=== PATIENT | male | born 1980 | race Caucasian/White ===

== ENCOUNTER → 2018-11-16 11:32 | Outpatient (CLI) | payer BC, SELFPAY ==
[2018-11-16 08:23] VITALS: BMI 42.7
[2018-11-16 12:45] LABS: Absolute Lymphocyte Count 1.17 X10^3/ul (0.83-4.51); Absolute Neutrophil Count 3.5 X10^3/uL (2.0-7.7); Basophil# 0.01 X10^3/uL; Basophil% 0.2 % (0-1); Eosinophil# 0.08 X10^3/uL; Eosinophils% 1.5 % (0-5); Hematocrit 44.2 % (40-54); Hemoglobin 14.5 g/dl (13.0-16.5); Lymphocyte # 1.17 X10^3/ul (4.0); Lymphocyte % 21.8 % (19-41); Mean Corp Hgb Conc 32.8 g/gl (32-36); Mean Corpuscular Hgb 27.6 pg (27.0-32.0); Mean Corpuscular Volume 84.2 fL (80-94); Mean Platelet Vol. 10.3 fl (6.2-12.0); Monocyte# 0.59 X10^3/uL; Neutrophil # 3.51 X10^3/uL (2.7-7.7); Neutrophil % 65.3 % (47-70); POSITIVE COUNT NO; POSITIVE DIFFERENTIAL NO; POSITIVE MORPHOLOGY NO; Platelet Count 360 K/mm3 (150-450); RBC Distribution Width CV 14.3 % (11.6-14.6); Red Blood Count 5.25 M/mm3 (4.6-6.2); White Blood Count 5.4 K/mm3 (4.4-11.0)
[2018-11-16 12:46] LABS: Anion Gap 4 (5-15); BUN 14 mg/dL (7-18); BUN/Creat Ratio 14.8 RATIO (10-20); Calcium,Total 8.5 mg/dL (8.5-10.1); Chloride 107 mmol/L (98-107); Creatinine, Serum 0.94 mg/dL (0.70-1.30); EST Glomerular Filtration Rate 96 mL/min (>60); Est Glom Filt Rate - Afr Amer 116 mL/min (>60); Glucose 107 mg/dL (74-106); Magnesium 2.1 mg/dL (1.6-2.6); Potassium 3.7 mmol/L (3.5-5.1); Sodium Level 140 mmol/L (136-145); Thyroid Stim Hormone (TSH) 1.74 uIU/mL (0.358-3.74)
== END ==
PROVIDERS: Family Provider Family Medicine; PCP Family Medicine; Referring Provider Internal Medicine Cardiovascular Disease; Visit Provider Internal Medicine Cardiovascular Disease
DX: I42.8 Other cardiomyopathies (principal)
CPT/HCPCS: 36415; 80048; 83735; 84443; 85025

== ENCOUNTER → 2018-12-21 08:40 | Outpatient (CLI) | payer BC, SELFPAY ==
[2018-11-16 08:23] VITALS: BMI 42.7
--- NOTE | 2018-12-21 08:42 | ECHOCS_ITS ---
Version 2 Reason For Study: SOB Procedure This was a 2D Doppler, Color Flow transthoracic echocardiogram. Technically difficult apical views due to subcutaneous AICD lead placement. Patient unable to tolerate probe pressure. Exam performed in department. Left Ventricle Mildly dilated left ventricle. The estimated ejection fraction is 30 %. There is severe global hypokinesis of the left ventricle. Right Ventricle Normal RV size. Normal systolic function. Atria Normal left atrium. Normal right atrium. Mitral Valve Normal mitral valve. Tricuspid Valve Normal tricuspid valve. Aortic Valve Normal aortic valve. Great Vessels Normal aortic root. Pericardium/Pleural No pericardial effusion. Medication 22 gauge I.V. with prn adaptor inserted into right arm. Diluted definity 4ml given slow IV push to enhance endocardial definition. MMode/2D Measurements & Calculations LVIDd: 6.0 cm IVSd: 0.84 cm Ao root diam: 3.3 cm LVIDs: 4.2 cm LVPWd: 1.1 cm FS: 29.6 % LA dimension(2D): 4.1 cm Doppler Measurements & Calculations MV E max pete: 69.6 cm/sec Lat Peak E' Pete: 6.0 cm/sec Med Peak E' Pete: 6.9 cm/sec MV A max pete: 60.3 cm/sec E/E' lat: 11.6 E/E' med: 10.2 MV E/A: 1.2 Ao V2 max: 141.8 cm/sec LV V1 max: 107.3 cm/sec PA V2 max: 122.1 cm/sec Ao max P.0 mmHg LV V1 max P.6 mmHg Interpretation Summary Mildly dilated left ventricle. The estimated ejection fraction is 30 %. There is severe global hypokinesis of the left ventricle. Contrast injection was performed. Compared to previous study, the left ventricular systolic function is the same.. Ordering Physician: Hosea Sanchez Referring Physician: Isac Gill Performed By: Kourtney Cohen RDCS
== END ==
PROVIDERS: Family Provider Family Medicine; PCP Family Medicine; Referring Provider Internal Medicine Cardiovascular Disease; Visit Provider Internal Medicine Cardiovascular Disease
DX: I42.8 Other cardiomyopathies (principal)
CPT/HCPCS: 93306; Q9957; A4216; C8929

== ENCOUNTER → 2019-06-10 | Outpatient (CLI) | payer BC, SELFPAY ==
[2019-05-17 08:06] VITALS: BMI 45.4
== END | disposition home or self-care (01) ==
LOC: SL 20:07
PROVIDERS: Family Provider Family Medicine; PCP Family Medicine; Referring Provider Nurse Practitioner Family; Visit Provider Nurse Practitioner Family
DX: G47.10 Hypersomnia, unspecified (principal)
CPT/HCPCS: 95810

== ENCOUNTER 2019-06-21 09:30 | Outpatient (RCR) | payer BC, SELFPAY ==
[2019-05-17 08:06] VITALS: BMI 45.4
== END 2019-06-22 23:59 ==
LOC: NS 09:30
PROVIDERS: Family Provider Family Medicine; PCP Family Medicine; Visit Provider Nurse Practitioner Family
DX: E66.01 Morbid (severe) obesity due to excess calories (principal); Z68.42 Body mass index [BMI] 45.0-49.9, adult; I42.8 Other cardiomyopathies; I50.9 Heart failure, unspecified; Z71.3 Dietary counseling and surveillance
CPT/HCPCS: 97802; 97803

== ENCOUNTER 2019-07-05 09:10 | Outpatient (RCR) | payer BC, SELFPAY ==
[2019-05-17 08:06] VITALS: BMI 45.4
[2019-06-25 07:42] VITALS: BMI 45.4
== END 2019-07-22 23:59 ==
LOC: NS 09:10
PROVIDERS: Family Provider Family Medicine; PCP Family Medicine; Visit Provider Nurse Practitioner Family
DX: E66.01 Morbid (severe) obesity due to excess calories (principal); Z68.42 Body mass index [BMI] 45.0-49.9, adult; I42.8 Other cardiomyopathies; I50.9 Heart failure, unspecified; Z71.3 Dietary counseling and surveillance
CPT/HCPCS: 97803

== ENCOUNTER → 2019-07-24 20:12 | Outpatient (CLI) | payer BC, SELFPAY ==
[2019-06-25 07:42] VITALS: BMI 45.4
== END ==
LOC: SL 20:12
PROVIDERS: Family Provider Family Medicine; PCP Family Medicine; Visit Provider Nurse Practitioner Acute Care
DX: G47.33 Obstructive sleep apnea (adult) (pediatric) (principal)
CPT/HCPCS: 95811

== ENCOUNTER 2019-08-09 09:00 | Outpatient (RCR) | payer BC, SELFPAY ==
[2019-06-25 07:42] VITALS: BMI 45.4
== END 2019-08-22 23:59 ==
LOC: NS 09:00
PROVIDERS: Family Provider Family Medicine; PCP Family Medicine; Visit Provider Nurse Practitioner Family
DX: E66.01 Morbid (severe) obesity due to excess calories (principal); Z68.42 Body mass index [BMI] 45.0-49.9, adult; I42.8 Other cardiomyopathies; I50.9 Heart failure, unspecified; Z71.3 Dietary counseling and surveillance
CPT/HCPCS: 97803

== ENCOUNTER → 2019-08-23 09:18 | Outpatient (CLI) | payer BC, SELFPAY ==
[2019-06-25 07:42] VITALS: BMI 45.4
== END ==
PROVIDERS: Family Provider Family Medicine; PCP Family Medicine; Referring Provider Nurse Practitioner Acute Care; Visit Provider Nurse Practitioner Acute Care
DX: G47.33 Obstructive sleep apnea (adult) (pediatric) (principal)

== ENCOUNTER 2019-08-30 08:37 | Outpatient (RCR) | payer BC, SELFPAY ==
[2019-08-07 09:41] VITALS: BMI 43.3
== END 2019-08-30 23:59 | disposition home or self-care (01) ==
LOC: NS 08:37
PROVIDERS: Family Provider Family Medicine; PCP Family Medicine; Visit Provider Nurse Practitioner Family
DX: Z71.3 Dietary counseling and surveillance (principal); E66.01 Morbid (severe) obesity due to excess calories; Z68.42 Body mass index [BMI] 45.0-49.9, adult; I42.9 Cardiomyopathy, unspecified; I50.9 Heart failure, unspecified
CPT/HCPCS: 97803

== ENCOUNTER → 2020-01-15 12:46 | Outpatient (CLI) | payer BC, SELFPAY ==
[2019-12-26 15:56] VITALS: BMI 45.1
--- NOTE | 2020-01-15 12:50 | ECHOCS_ITS ---
Reason For Study: DYSPNEA Procedure This was a 2D Doppler, Color Flow transthoracic echocardiogram. The study was technically difficult. Contrast injection was performed. Exam performed in department. Left Ventricle Normal LV size. The estimated ejection fraction is 45 %. No regional wall motion abnormalities noted. There is mild to moderate global hypokinesis of the left ventricle. Right Ventricle Normal RV size. Normal systolic function. Tricuspid Valve Normal tricuspid valve. Pulmonic Valve The pulmonic valve is not well visualized. Great Vessels Normal aortic root. Pericardium/Pleural No pericardial effusion. Medication 22 gauge I.V. with prn adaptor inserted into right arm. Diluted definity 6.0ml given slow IV push to enhance endocardial definition. MMode/2D Measurements & Calculations LVIDd: 5.9 cm IVSd: 1.1 cm Ao root diam: 3.0 cm LVIDs: 4.2 cm LVPWd: 1.1 cm RVDd: 3.5 cm FS: 28.8 % LAV(MOD-sp4): 48.1 ml EDV(MOD-sp4): 182.7 ml EDV(MOD-sp2): 150.5 ml ESV(MOD-sp4): 100.3 ml EF(MOD-sp2): 53.1 % EF(MOD-sp4): 45.1 % SV(MOD-sp4): 82.4 ml SV(MOD-sp2): 79.8 ml LA A4 area: 18.0 cm2 LA dimension(2D): 4.8 cm RA A4 area: 13.8 cm2 Time Measurements MV dec time: 0.29 sec Doppler Measurements & Calculations MV E max pete: 74.4 cm/sec Lat Peak E' Pete: 6.6 cm/sec Med Peak E' Pete: 7.9 cm/sec MV A max pete: 59.0 cm/sec E/E' lat: 11.2 E/E' med: 9.5 MV E/A: 1.3 Ao V2 max: 122.6 cm/sec LV V1 max: 101.1 cm/sec PA V2 max: 137.5 cm/sec Ao max P.0 mmHg LV V1 max P.1 mmHg Interpretation Summary Normal LV size. The estimated ejection fraction is 45 %. No regional wall motion abnormalities noted. There is mild to moderate global hypokinesis of the left ventricle. Contrast injection was performed. Ordering Physician: Hosea Sanchez Referring Physician: GENARO CULLEN Performed By: Gricelda Pyle, RDCS, RVT
== END ==
PROVIDERS: PCP Family Medicine; Referring Provider Internal Medicine Cardiovascular Disease; Visit Provider Internal Medicine Cardiovascular Disease
DX: I42.8 Other cardiomyopathies (principal)
CPT/HCPCS: 93306; Q9957; A4216; C8929

== ENCOUNTER → 2023-05-11 | Outpatient (CLI) | payer BC, SELFPAY ==
--- NOTE | 2023-05-11 09:32 | ECHOCS_ITS ---
Reason For Study: Cardiomyopathy Procedure This was a 2D Doppler, Color Flow transthoracic echocardiogram. The study was technically difficult. Contrast injection was performed. Exam performed in department. Left Ventricle Normal LV size. The estimated ejection fraction is 45 %. Stage 2 diastolic dysfunction. There is mild global hypokinesis of the left ventricle. Right Ventricle Normal RV size. Normal systolic function. Atria Normal left atrium. Normal right atrium. Mitral Valve Normal mitral valve. Tricuspid Valve Normal tricuspid valve. Aortic Valve Trisinus/trileaflet aortic valve. Pulmonic Valve Normal pulmonic valve. Great Vessels Normal aortic root. The pulmonary artery is normal size. Normal inferior vena cava. Pericardium/Pleural No pericardial effusion. Medication 20 gauge I.V. with prn adaptor inserted into right arm. Diluted definity 1.75ml given slow IV push to enhance endocardial definition. MMode/2D Measurements & Calculations LVIDd: 5.6 cm IVSd: 1.0 cm Ao root diam: 3.1 cm LVIDs: 4.5 cm LVPWd: 1.1 cm LA dimension: 4.4 cm RVDd: 3.5 cm FS: 19.5 % LAV(MOD-bp): 34.3 ml LVAd ap4: 41.0 cm2 SV(MOD-sp4): 55.1 ml LAV(MOD-bp) Indexed: 15.3 ml/m2 LVLd ap4: 8.9 cm LAV(MOD-sp2): 30.7 ml EDV(MOD-sp4): 156.0 ml LAV(MOD-sp4): 33.7 ml EDV(sp4-el): 160.1 ml LVAs ap4: 30.6 cm2 LVLs ap4: 7.7 cm ESV(MOD-sp4): 100.9 ml ESV(sp4-el): 102.4 ml EF(MOD-sp4): 35.3 % EF(sp4-el): 36.1 % SV(sp4-el): 57.7 ml LA A4 area: 14.7 cm2 RA A4 area: 11.0 cm2 Time Measurements MV dec time: 0.19 sec Doppler Measurements & Calculations MV E max pete: 100.8 cm/sec Lat Peak E' Pete: 9.6 cm/sec Med Peak E' Pete: 12.0 cm/sec MV A max pete: 71.5 cm/sec E/E' lat: 10.5 E/E' med: 8.4 MV E/A: 1.4 MV V2 max: 102.0 cm/sec MV P1/2t max pete: 103.3 cm/sec Ao V2 max: 140.2 cm/sec MV max P.2 mmHg MV P1/2t: 63.1 msec Ao max P.9 mmHg MV V2 mean: 58.4 cm/sec Ao V2 mean: 101.0 cm/sec MV mean P.6 mmHg MV dec slope: 479.5 cm/sec2 Ao mean P.6 mmHg MV V2 VTI: 30.2 cm MVA(P1/2t): 3.5 cm2 Ao V2 VTI: 28.4 cm AV (velocity ratio): 0.85 LV V1 max: 122.9 cm/sec PA V2 max: 122.3 cm/sec LV V1 max P.0 mmHg PA V2 mean: 83.2 cm/sec LV V1 mean P.5 mmHg LV V1 mean: 88.1 cm/sec LV V1 VTI: 24.1 cm ECHO/Echo Complete W/ Contrast Interpretation Summary Normal LV size. The estimated ejection fraction is 45 %. There is mild global hypokinesis of the left ventricle. Stage 2 diastolic dysfunction. Contrast injection was performed. Ordering Physician: Jose Antonio Riley Referring Physician: Isac Gill Performed By: Db Rodgers RCS
[2023-05-11 11:18] LABS: Anion Gap 6 (5-15); BUN 18 mg/dL (7-18); BUN/Creat Ratio 19.9 RATIO (10-20); Chloride 106 mmol/L (98-107); EST Glomerular Filtration Rate 98 mL/min (>60); Est Glom Filt Rate - Afr Amer 119 mL/min (>60); Glucose 148 mg/dL (74-106); Magnesium 2.5 mg/dL (1.6-2.6); Potassium 3.6 mmol/L (3.5-5.1); Sodium Level 141 mmol/L (136-145)
== END | disposition home or self-care (01) ==
PROVIDERS: PCP Family Medicine; Referring Provider Nurse Practitioner Family; Visit Provider Nurse Practitioner Family
DX: I42.8 Other cardiomyopathies (principal); Z95.810 Presence of automatic (implantable) cardiac defibrillator
CPT/HCPCS: 36415; 80048; 83735; 93306; Q9957; A4216; C8929

== ENCOUNTER → 2025-08-14 | Outpatient (CLI) | payer BC, SELFPAY ==
[2025-08-14 14:40] LABS: Anion Gap 13 (5-15); BUN 19 mg/dL (4-19); BUN/Creat Ratio 28.4 RATIO (10-20); Calcium,Total 9.1 mg/dL (7.6-11.0); Carbon Dioxide 23.4 mmol/L (21.0-32.0); Chloride 104 mmol/L (98-108); Glucose 272 mg/dL (70-99); Magnesium 2.3 mg/dL (1.5-2.2); Potassium 3.9 mmol/L (3.3-5.1)
== END | disposition home or self-care (01) ==
PROVIDERS: PCP Family Medicine; Referring Provider Internal Medicine Cardiovascular Disease; Visit Provider Internal Medicine Cardiovascular Disease
DX: I42.8 Other cardiomyopathies (principal)
CPT/HCPCS: 36415; 80048; 83735